=== PATIENT | female | born 1990 | race African-American/Black ===

== ENCOUNTER 2019-04-20 08:05 | Emergency (ER) | payer MEDICAID ==
[~2019-04-20] VITALS: Ht 177.8 cm; Wt 96.0 kg
[2019-04-20] MEDS ORDERED: HYDROCODONE/ACETAMINOPHEN 5/325MG TABLET PO ONE (10:30)
[2019-04-20] MEDS ORDERED: IBUPROFEN 600MG TABLET PO ONE (10:30)
[2019-04-20 10:39] LABS: BASOPHILS % 0.5 % (0.0-2.0); EOSINOPHILS % 1.9 % (0.0-5.0); HEMATOCRIT. 39.6 % (36.0-48.0); HEMOGLOBIN. 13.4 g/dL (12.0-16.0); LYMPHOCYTES % 32.2 % (20.0-50.0); MEAN CORPUSCULAR HEMOGLOBIN 29.5 pg (28.0-32.0); MEAN CORPUSCULAR VOLUME 87.5 fL (81.0-99.0); MEAN PLATELET VOLUME 7.3 fl (7.4-10.4); MONOCYTES % 4.6 % (2.0-8.0); NEUTROPHILS % 60.8 % (40.0-76.0); PLATELET 273 x1000/uL (130-400); RED BLOOD CELL COUNT 4.53 mill/uL (4.2-5.4); RED CELL DISTRIBUTION WIDTH 14.4 % (11.6-14.6)
[2019-04-20 10:45] LABS: CHLORIDE 107 mEq/L (98-107)
[2019-04-20 10:48] LABS: HCG SCREEN NEGATIVE
[2019-04-20 10:54] LABS: CLARITY URINE CLEAR (CLEAR); COLOR URINE YELLOW (YELLOW); KETONES URINE NEGATIVE (NEGATIVE); LEUKOCYTE ESTERASE URINE TRACE (NEGATIVE); NITRITE URINE NEGATIVE (NEGATIVE); OCCULT BLOOD URINE NEGATIVE (NEGATIVE); PH URINE 8.5 (4.5-8.0); PROTEIN URINE NEGATIVE (NEGATIVE); SPECIFIC GRAVITY URINE 1.012 (1.005-1.030); UROBILINOGEN URINE 0.2 E.U./dL (0.2-1.0)
[2019-04-20] MEDS ORDERED: METRONIDAZOLE 500MG TABLET PO STA (11:37)
[2019-04-20 12:44] VITALS: BP 113/63
== END 2019-04-20 12:47 | disposition home or self-care (01) ==
LOC: ER 08:39
DX: K80.20 Calculus of gallbladder without cholecystitis without obstruction (principal); N39.0 Urinary tract infection, site not specified; A59.9 Trichomoniasis, unspecified; J45.909 Unspecified asthma, uncomplicated; F12.10 Cannabis abuse, uncomplicated; Z90.89 Acquired absence of other organs
CPT/HCPCS: 36415; 76705; 80053; 81003; 81025; 83690; 84703; 85025; 99284; Z7610

== ENCOUNTER 2022-04-23 12:24 | Inpatient (IN) | payer MEDICAID ==
[~2022-04-23] VITALS: Ht 177.8 cm; Wt 142.9 kg
[2022-04-23] MEDS ORDERED: SODIUM CHLORIDE 0.9% 1,000 ML IV ONE (14:45)
[2022-04-23] MEDS ORDERED: MORPHINE SULFATE 4 MG/ML CPJ (NOT FOR IM USE) IV ONE (14:45)
[2022-04-23] MEDS ORDERED: ONDANSETRON HCL 4MG/2ML INJ IV NR (14:45)
[2022-04-23] MEDS ORDERED: CEFTRIAXONE 1 G PREMIX 50 ML IV ONE (14:45)
[2022-04-23] MEDS: MORPHINE SULFATE 4 MG/ML CPJ (NOT FOR IM USE) IV NR ×2 (14:45→19:11)
[2022-04-23] MEDS ORDERED: ONDANSETRON HCL 4MG/2ML INJ IV ONE (14:45)
[2022-04-23] MEDS ORDERED: CEFTRIAXONE 1 G PREMIX 50 ML IV NR (14:45)
[2022-04-23 15:48] LABS: HEMOGLOBIN. 13.5 g/dL (12.0-16.0); MONOCYTES % 9.1 % (2.0-8.0)
[2022-04-23 15:53] LABS: BASOPHILS % 0.4 % (0.0-2.0); EOSINOPHILS % 1.3 % (0.0-5.0); HEMATOCRIT. 41.2 % (36.0-48.0); MEAN CORPUSCULAR HEMOGLOBIN 27.1 pg (28.0-32.0); MEAN CORPUSCULAR VOLUME 82.5 fL (81.0-99.0); MEAN PLATELET VOLUME 8.6 fl (7.4-10.4); NEUTROPHILS % 75.2 % (40.0-76.0); PLATELET 295 x1000/uL (130-400); RED BLOOD CELL COUNT 4.99 mill/uL (4.2-5.4); RED CELL DISTRIBUTION WIDTH 15.7 % (11.6-14.6)
[2022-04-23 15:56] LABS: CHLORIDE 102 mEq/L (98-107)
[2022-04-23 20:00] VITALS: BP 140/64
[2022-04-23 20:45] VITALS: BP 140/64
[2022-04-23] MEDS ORDERED: HYDROCODONE/ACETAMINOPHEN 5/325MG TABLET PO PRN (21:30)
[2022-04-23] MEDS ORDERED: ACETAMINOPHEN 325MG TABLET PO PRN (21:30)
[2022-04-23] MEDS ORDERED: LORAZEPAM 2MG/ML CPJ IV PRN (21:30)
[2022-04-23] MEDS ORDERED: ONDANSETRON HCL 4MG/2ML INJ IV PRN (21:30)
[2022-04-23] MEDS ORDERED: CEFTRIAXONE 1 G PREMIX 50 ML IV SCH (21:30)
[2022-04-23] MEDS ORDERED: IPRATROPIUM/ALBUTEROL 0.5-3(2.5)MG/3ML NEB HHN PRN ×2 (21:30)
[2022-04-23] MEDS ORDERED: VANCOMYCIN 2,000 MG in DEXT 5% WATER 500 ML IV NR (23:30)
[2022-04-24] VITALS: BP 149/73
[2022-04-24 04:00] VITALS: BP 130/70
[2022-04-24 08:00] VITALS: BP 121/44
[2022-04-24] MEDS: ENOXAPARIN 30MG/0.3ML SYR SUBCUT SCH ×3 (08:58→09:24)
[2022-04-24] MEDS: VANCOMYCIN 1G PREMIX 200 ML IV SCH ×2 (09:10→17:16)
[2022-04-24 12:00] VITALS: BP 107/60
[2022-04-24] MEDS ORDERED: VANCOMYCIN 1G PREMIX 200 ML IV SCH (12:00)
[2022-04-24] MEDS: CEFTRIAXONE 1,000 MG in DEXTROSE 5% WATER 50 ML IV SCH (13:43)
[2022-04-24 16:00] VITALS: BP 121/70
[2022-04-24 17:35] LABS: BASOPHILS % 0.2 % (0.0-2.0); EOSINOPHILS % 2.2 % (0.0-5.0); HEMATOCRIT. 35.9 % (36.0-48.0); HEMOGLOBIN. 11.6 g/dL (12.0-16.0); MEAN CORPUSCULAR HEMOGLOBIN 26.9 pg (28.0-32.0); MEAN CORPUSCULAR VOLUME 83.4 fL (81.0-99.0); MEAN PLATELET VOLUME 8.3 fl (7.4-10.4); NEUTROPHILS % 74.6 % (40.0-76.0); PLATELET 291 x1000/uL (130-400); RED BLOOD CELL COUNT 4.31 mill/uL (4.2-5.4); RED CELL DISTRIBUTION WIDTH 15.7 % (11.6-14.6)
[2022-04-24] MEDS ORDERED: HYDROCODONE/ACETAMINOPHEN 10/325MG TABLET PO PRN (17:45)
[2022-04-24 17:48] LABS: CHLORIDE 103 mEq/L (98-107)
[2022-04-24] MEDS ORDERED: NALOXONE HCL 0.4MG/ML VIAL IV PRN (18:00)
[2022-04-24] MEDS: NICOTINE 14MG PATCH TD SCH (18:20)
[2022-04-25] MEDS: VANCOMYCIN 1G PREMIX 200 ML IV SCH ×2 (00:58→09:22)
[2022-04-25 03:47] LABS: *BARBITURATES SCREEN URINE NEGATIVE (NEGATIVE); *BENZODIAZEPINES SCREEN URINE NEGATIVE (NEGATIVE); *COCAINE SCREEN URINE NEGATIVE (NEGATIVE); CANNABINOID URINE SCREEN NEGATIVE (NEGATIVE); METHADONE URINE SCREEN NEGATIVE (NEGATIVE); PHENCYCLIDINE URINE SCREEN NEGATIVE (NEGATIVE)
[2022-04-25 04:18] LABS: *AMPHETAMINES SCREEN URINE PRESUMTIVE POSITIVE (NEGATIVE); OPIATES URINE SCREEN PRESUMTIVE POSITIVE (NEGATIVE)
[2022-04-25 07:15] LABS: CHLORIDE 104 mEq/L (98-107)
[2022-04-25] MEDS: NICOTINE 14MG PATCH TD SCH (09:22)
[2022-04-25] MEDS ORDERED: VANCOMYCIN 2,000 MG in DEXT 5% WATER 500 ML IV SCH (10:00)
[2022-04-25] MEDS ORDERED: SULF1TAB48 MT (12:53)
[2022-04-25] MEDS ORDERED: AMOX1TAB16 MT (12:53)
[2022-04-25] MEDS: CEFTRIAXONE 1,000 MG in DEXTROSE 5% WATER 50 ML IV SCH (13:36)
[2022-04-25 14:41] VITALS: BP 109/79
[2022-04-25] MEDS ORDERED: ENOXAPARIN 40MG/0.4ML SYR SUBCUT SCH (21:00)
== END 2022-04-25 16:58 | disposition home or self-care (01) | DRG 383 ==
LOC: ER 12:35 → 6EST 15:59 → ENRESERV 19:07
PROVIDERS: ADMIT Internal Medicine; ATTEND Internal Medicine
DX: L03.115 Cellulitis of right lower limb (principal); E44.1 Mild protein-calorie malnutrition; E66.9 Obesity, unspecified; J45.909 Unspecified asthma, uncomplicated; F12.90 Cannabis use, unspecified, uncomplicated; Z68.42 Body mass index [BMI] 45.0-49.9, adult; Z71.3 Dietary counseling and surveillance; E87.1 Hypo-osmolality and hyponatremia
CPT/HCPCS: 36415; 80048; 80053; 80202; 80305; 83605; 85025; 93971; 99285; J0696; J1650; J2060; J2270; J2405; J3370; J7030; J7060

== ENCOUNTER 2023-12-30 09:18 | Emergency (ER) | payer MEDICAID ==
[~2023-12-30] VITALS: Ht 170.2 cm; Wt 110.0 kg
[~2023-12-30 09:18] MED LIST: AMOX1TAB16 MT; SULF1TAB48 MT
[2023-12-30 09:31] VITALS: O2SAT 99
[2023-12-30] MEDS ORDERED: ONDANSETRON 4MG ODT PO ONE (13:15)
[2023-12-30] MEDS: ONDANSETRON 4MG ODT PO NR (15:02)
[2023-12-30 15:13] LABS: HCG SCREEN NEGATIVE
[2023-12-30 15:18] LABS: ALANINE AMINOTRANSFERASE 21 IU/L (10-49); ALBUMIN 4.2 g/dL (3.2-4.8); ASPARTATE AMINOTRANSFERASE 25 IU/L (<34); BILIRUBIN TOTAL 1.1 mg/dL (0.1-1.0); CALCIUM 9.1 mg/dL (8.7-10.4); CARBON DIOXIDE 23 mEq/L (21-32); CHLORIDE 105 mEq/L (98-107); CREATININE 0.9 mg/dL (0.6-1.0); GLUCOSE 113 mg/dL (70-105); POTASSIUM 4.2 mEq/L (3.5-5.1); PROTEIN TOTAL 7.7 g/dL (6.0-8.3); SODIUM 137 mEq/L (136-145); UREA NITROGEN BLOOD 20 mg/dL (9-23)
[2023-12-30 15:28] LABS: HEMATOCRIT. 43.7 % (36.0-48.0); MEAN CORPUSCULAR HEMOGLOBIN 27.8 pg (28.0-32.0); MEAN CORPUSCULAR HGB CONC 32.1 g/dL (31.0-37.0); MEAN CORPUSCULAR VOLUME 86.4 fL (81.0-99.0); MEAN PLATELET VOLUME 8.1 fl (7.4-10.4); PLATELET 298 x1000/uL (130-400); RED BLOOD CELL COUNT 5.05 mill/uL (4.2-5.4); RED CELL DISTRIBUTION WIDTH 15.7 % (11.6-14.6); WHITE BLOOD COUNT 10.9 x1000/uL (4.5-11.0)
[2023-12-30 15:50] LABS: ANISOCYTOSIS 1+; PLATELET ESTIMATE NORMAL
[2023-12-30] MEDS: ACETAMINOPHEN 325MG TABLET PO NR (16:00)
[2023-12-30 17:49] VITALS: BP 147/89; PULSE 89; RESP 18; TEMP 98.7
== END 2023-12-30 18:40 | disposition home or self-care (01) ==
LOC: ER 09:18
DX: A08.39 Other viral enteritis (principal); J45.909 Unspecified asthma, uncomplicated; K80.20 Calculus of gallbladder without cholecystitis without obstruction; Z90.89 Acquired absence of other organs
CPT/HCPCS: 80053; 84703; 83690; 85025; 36415; 99283; Q0162; Z7610

== ENCOUNTER 2024-01-08 04:18 | Emergency (ER) | payer MEDICAID ==
[~2024-01-08] VITALS: Ht 175.3 cm; Wt 91.0 kg
[2024-01-08 04:20] VITALS: BP 160/77; PULSE 84; RESP 18; TEMP 98; O2SAT 100
== END 2024-01-08 06:00 | disposition home or self-care (01) ==
LOC: ER 04:26
DX: F41.1 Generalized anxiety disorder (principal); J45.909 Unspecified asthma, uncomplicated
CPT/HCPCS: 99283

== ENCOUNTER 2024-09-01 05:30 | Emergency (ER) | payer MEDICAID ==
[~2024-09-01] VITALS: Ht 177.8 cm; Wt 146.1 kg
[2024-09-01 05:41] VITALS: O2SAT 99
[2024-09-01 11:13] LABS: BG BASE EXCESS 1.6 mmol/L (-2.0-3.0); BG CARBOXYHEMOGLOBIN 0.7 % (0.5-1.5); BG DEOXYHEMOGLOBIN 2.8 % (0.0-5.0); BG FRACTION INSPIRED OXYGEN 21; BG HCO3 ACT 26.5 mmol/L (21.0-28.0); BG METHEMOGLOBIN 0.3 % (0.5-1.5); BG OXYGEN SATURATION 97.2 % (94.0-98.0); BG OXYHEMOGLOBIN 96.2 % (94.0-98.0); BG PCO2 42.4 mmHg (32.0-45.0); BG PH 7.413 (7.350-7.450); BG PO2 90.8 mmHg (83.0-108.0); BG SAMPLE SITE RIGHT RADIAL; BG TOTAL HEMOGLOBIN 12.3 g/dL (12.0-16.0); BG VENT MODE ROOM AIR
[2024-09-01 11:14] LABS: BASOPHILS % 0.5 % (0.0-2.0); EOSINOPHILS % 5.5 % (0.0-5.0); HEMOGLOBIN. 12.2 g/dL (12.0-16.0); MEAN CORPUSCULAR HEMOGLOBIN 28.9 pg (28.0-32.0); MEAN CORPUSCULAR HGB CONC 33.8 g/dL (31.0-37.0); MEAN CORPUSCULAR VOLUME 85.6 fL (81.0-99.0); MEAN PLATELET VOLUME 7.2 fl (7.4-10.4); MONOCYTES % 7.9 % (2.0-8.0); NEUTROPHILS % 57.1 % (40.0-76.0); PLATELET 301 x1000/uL (130-400); RED BLOOD CELL COUNT 4.21 mill/uL (4.2-5.4); RED CELL DISTRIBUTION WIDTH 14.5 % (11.6-14.6); WHITE BLOOD COUNT 11.7 x1000/uL (4.5-11.0)
[2024-09-01 11:26] LABS: CHLORIDE 112 mEq/L (98-107); POTASSIUM 3.7 mEq/L (3.5-5.1); SODIUM 147 mEq/L (136-145)
[2024-09-01 11:27] LABS: CALCIUM 9.2 mg/dL (8.7-10.4); CARBON DIOXIDE 32 mEq/L (21-32)
[2024-09-01 11:32] LABS: GLUCOSE 96 mg/dL (70-105); UREA NITROGEN BLOOD 17 mg/dL (9-23)
[2024-09-01 11:42] VITALS: BP 148/92; PULSE 60; RESP 16; TEMP 37.11408; O2SAT 99
[2024-09-01 12:32] LABS: HCG SCREEN NEGATIVE
== END 2024-09-01 11:40 | disposition home or self-care (01) ==
LOC: ER 05:30
DX: Z11.3 Encounter for screening for infections with a predominantly sexual mode of transmission (principal); Z76.5 Malingerer [conscious simulation]; J45.909 Unspecified asthma, uncomplicated; Z90.89 Acquired absence of other organs
CPT/HCPCS: 36415; 36600; 80048; 82375; 82805; 84703; 85025; 93005; 99284